=== PATIENT | male | born 1980 | race Caucasian/White ===

== ENCOUNTER 2021-11-17 13:12 | Emergency (ER) | payer MEDICAID, SELFPAY ==
[2021-11-17 13:20] VITALS: BP 117/56; PULSE 85; RESP 24; TEMP 37.5; O2SAT 100
--- NOTE | 2021-11-17 14:30 | DI.RAD_ITS ---
Exam(s) XR PORTABLE CHEST AP EXAM: XR PORTABLE CHEST AP CLINICAL HISTORY: cough. TECHNIQUE: 2D digital imaging was performed. COMPARISON: No exams were available for comparison FINDINGS: Single AP portable view. Heart size is upper normal. The mediastinum is not widened. Lungs are clear. No infiltrates nor obvious pleural effusions. IMPRESSION: No acute pulmonary findings on this single AP portable view of the chest. DATA REPOSITORY: RADIATION DOSE DELIVERED:
--- NOTE | 2021-11-17 14:36 | ED.GENADUL_ITS ---
Discharge Plan Disposition Patient Disposition: HOME Condition: Stable Discharge Details Clinical Impression: Cough, Upper respiratory infection Primary Care Provider: Marjan Interiano ED Provider: Niko Rousseau Home Meds and New Rx's Prescriptions: New prednisone 20 mg tablet 60 mg PO DAILY 4 Days Qty: 12 0RF amoxicillin-pot clavulanate 875-125 mg tablet 1 tab PO BID Qty: 14 0RF Continued gabapentin 600 mg Tablet 600 mg PO TID levothyroxine 50 mcg Tablet 50 mcg PO DAILY lamotrigine 100 mg Tablet 100 mg PO BID testosterone 200 mg Pellet See Rx Instructions .ROUTE .COMPLEX Rx Instructions: 200 mg subcutaneously q 2 weeks. Discharge Instructions Instructions: Upper Respiratory Infection (ED) Additional Instructions: if you're not improving this week follow up with your primary care provider if you feel more ill, have worsening shortness of breath or severe pain return to the emergency department Medical Decision Making 41 yo male who has hypothyroidism who comes in with 1 week of nasal congestion, cough and body aches. He states he lives with people that have had similar symptoms but resolved after a few days. HE has not checked his temperature but has felt warm and also had chills. HE denies dyspnea, chest pain, abdomen pain. He does have a history of substance abuse but states he has been clear for 9 months. HE arrives stable speaking in full sentences, caox4 with clear speech. No rashes, does have clear rhinorrhea and pain with percussion over the maxillary sinuses. HE has rhonchi in both lower lungs on exam, no murmurs. Suspect viral uri vs sinusitis vs covid, less likely pneumonia, will obtain cbc, cmp, treat with duoneb and prednisone and obtain covid test and cxr and reassess. Denies ivdu and has no murmurs or other stigmata of endocarditis wbc of 13 otherwise unremarkable, xray unremarkable. HE is stable, feels better after a neb, given a week of symptoms will treat for possible sinusitis vs bacterial uri with augmentin. He is stable for d/c, advised to f/u with pcp and return precautions given Differential Diagnosis Differential Diagnosis: uri, sinusitis, covid, pneumonia Imaging Data Radiologic Study: Attestation: I personally reviewed and interpreted this imaging study as follows: Imaging: X-Ray Radiologist's impression: no acute findings Lab Data Lab results reviewed: Yes I reviewed the patient's lab results. HPI General Mode of arrival: ambulatory . Date/Time Provider Initiated Documentation: 11/17/21 13:59 . Limitations to Documentation: no limitations . Information obtained by: patient . History of Present Illness 41 year old M presents to the emergency department with the chief complaint of cough, described as moderate, Patient started experiencing this week(s) (1) and it has been intermittent. No relieving factors improve symptom(s), No exacerbating factors reported . Patient notes fever/chills. Patient did receive the following treatments prior to arrival, none Related Data Home Medications Medication Instructions Recorded Confirmed amoxicillin 875 mg-potassium 1 tab PO BID #14 tabs 11/17/21 clavulanate 125 mg tablet gabapentin 600 mg tablet 600 mg PO TID 11/17/21 11/17/21 lamotrigine 100 mg tablet 100 mg PO BID 11/17/21 11/17/21 levothyroxine 50 mcg tablet 50 mcg PO DAILY 11/17/21 11/17/21 prednisone 20 mg tablet 60 mg PO DAILY 4 days #12 tabs 11/17/21 testosterone 200 mg implant pellet See Rx Instructions .Route .COMPLEX 11/17/21 11/17/21 Previous Rx's Medication Instructions Recorded amoxicillin 875 mg-potassium 1 tab PO BID #14 tabs 11/17/21 clavulanate 125 mg tablet prednisone 20 mg tablet 60 mg PO DAILY 4 days #12 tabs 11/17/21 Allergies Allergy/AdvReac Type Severity Reaction Status Date / Time No Known Allergies Allergy Unverified 11/17/21 14:26 General Stated Complaint: RespSymp LC: 3 Review of Systems All systems reviewed & are unremarkable except as noted in HPI and below Constitutional Constitutional: Denies weakness Eyes Eyes: Denies loss of vision ENT Ears, Nose, Mouth, and Throat: Denies change in voice Cardiovascular Cardiovascular: Denies chest pain and Denies dyspnea Respiratory Respiratory: Denies dyspnea Gastrointestinal Gastrointestinal: Denies abdominal pain, Denies nausea and Denies vomiting Genitourinary Genitourinary: Denies dysuria Musculoskeletal Musculoskeletal: Denies joint swelling Integumentary/Breasts Skin/Breast: Denies rash Neurologic Neurologic: Denies loss of vision and Denies weakness PFSH All Active Problems (Updated 11/17/21 @ 15:58 by Niko Rousseau MD) Cough (Acute) Upper respiratory infection (Acute) Social History Smoking/Tobacco Use Status: Current every day Tobacco Type: cigarettes Smoking risk assessment performed?: Yes Alcohol Intake: former Drug use: Daily Substance use type: marijuana Do you feel safe at home: Yes Do you feel safe in your relationship?: Yes Exam Const General: no acute distress Orientation: alert HENMT Head: normal to inspection Ears: external ears normal General nose exam: external nose normal Mouth: moist mucous membranes Eyes General: appearance normal, both eyes and all related structures Neck Neck: normal visual inspection Resp Effort & Inspection: normal respiratory effort and able to speak in complete sentences Cardio Rate: regular rate Skin General skin exam: no rashes or lesions noted Neuro General: patient alert and patient oriented x3 Extrem General: normal to inspection Psych Mental Status: mental status grossly normal Course Vital Signs Vital signs: Vital Signs Temperature 37.5 C 11/17/21 13:20 Pulse 85 11/17/21 13:20 Respiratory Rate 24 11/17/21 13:20 Blood Pressure 117/56 L 11/17/21 13:20 Pulse Oximetry 100 11/17/21 13:20 Temperature 37.5 C 11/17/21 13:20 Temperature Source Oral 11/17/21 13:20 Pulse 85 11/17/21 13:20 Respiratory Rate 24 11/17/21 13:20 Respiratory Effort Non-Labored 11/17/21 14:29 Respiratory Depth Normal 11/17/21 14:29 Blood Pressure 117/56 L 11/17/21 13:20 Pulse Oximetry 100 11/17/21 13:20 Oxygen Delivery Method Room Air 11/17/21 13:20 Oxygen Flow Rate 0 11/17/21 13:20 Pain Level 10 11/17/21 13:20 Comment 11/17/21 13:20
[2021-11-17 14:45] LABS: Source Nasal/Nares
[2021-11-17 14:50] LABS: Abs Immature Grans 0.03 10^3/uL (0.0-0.06); Absolute Basophil Count 0.03 10^3/uL (0.0-0.2); Absolute Eosinophil Count 0.04 10^3/uL (0.0-0.7); Absolute Monocyte Count 1.09 10^3/uL (0.1-0.8); Basophils % 0.2; Eosinophils % 0.3; HCT 42.6 % (40.0-50.0); HGB 14.6 g/dL (13.5-17.5); Immature Grans % 0.2; Lymphocytes % 12.8; MCH 29.6 pg (27.0-33.0); MCHC 34.3 % (32.0-36.0); MCV 86 fL (80-95); MPV 9.7 fL (8.0-11.0); Monocytes % 8.3; Neutrophils % 78.2; Platelet Count 243 10^3/uL (130-400); RBC 4.94 10^6/uL (4.36-5.78); RDW-SD 38.1 fL; WBC 13.17 10^3/uL (4.4-10.8)
[2021-11-17 14:51] VITALS: RESP 14
[2021-11-17] MEDS: Albuterol/Ipratropium 3 ML UPD VIAL UPD (14:51)
[2021-11-17] MEDS: predniSONE 20 MG TAB 60 MG PO (14:51)
[2021-11-17 14:55] LABS: Absolute Lymphocyte Count 1.69 10^3/uL (1.2-3.4)
[2021-11-17 15:08] LABS: ALT 39 U/L (16-63); AST 40 U/L (15-37); Albumin 3.9 g/dL (3.4-5.0); Alkaline Phosphatase 71 U/L (46-116); Anion Gap 7.8 mmol/L (3-11); BUN 14 mg/dL (7-18); Bilirubin, Total 0.8 mg/dL (0.2-1.0); CO2 29.2 mmol/L (21.0-32.0); CREATININE 0.9 mg/dL (0.70-1.30); Chloride 99 mmol/L (98-107); Estimated GFR 109.36 (mL/min/1.73m2); Glucose 108 mg/dL (74-106); Potassium 3.8 mmol/L (3.5-5.1); Sodium 136 mmol/L (136-145); Total Protein 7.5 g/dL (6.4-8.2)
[2021-11-17 15:10] VITALS: TEMP 38.1
[2021-11-17 15:13] VITALS: TEMP 38.1
[2021-11-17] MEDS: Acetaminophen 500 MG TAB 1000 MG PO (15:13)
--- NOTE | 2021-11-17 15:13 | DI.VRAD_ITS ---
PROCEDURE INFORMATION: Exam: XR Chest Exam date and time: 11/17/2021 2:46 PM Age: 41 years old Clinical indication: Cough TECHNIQUE: Imaging protocol: Radiologic exam of the chest. Views: 1 view. COMPARISON: No relevant prior studies available. FINDINGS: Lungs: Chronic interstitial prominence. No consolidation. Pleural spaces: Unremarkable. No pleural effusion. No pneumothorax. Heart/Mediastinum: Unremarkable. No cardiomegaly. Bones/joints: Unremarkable. IMPRESSION: No acute findings. Dictated and Authenticated by: Michael Pendleton MD. Ordering:MARYA Pope MD
[2021-11-17 15:21] LABS: COVID-19 PCR Negative (Negative)
[2021-11-17] MEDS: Amoxicillin 875/Clav. 125 TAB PO (15:59)
[2021-11-17] MEDS: Albuterol HFA 8 GM 60 PUFF INH IH (16:03)
[2021-11-17 16:08] VITALS: BP 119/58; PULSE 95; RESP 18; TEMP 37; O2SAT 95
== END 2021-11-17 16:11 | disposition home or self-care (01) ==
PROVIDERS: Emergency Provider Emergency Medicine; PCP Registered Nurse Infection Control
DX: J06.9 Acute upper respiratory infection, unspecified (principal); Z20.822 Contact with and (suspected) exposure to COVID-19; F17.210 Nicotine dependence, cigarettes, uncomplicated
CPT/HCPCS: 36415; 80053; 87635; 94640; 99284; 71045; 85025; J7512; J7620

== ENCOUNTER 2021-12-09 15:29 | Emergency (ER) | payer MEDICAID, SELFPAY ==
[2021-12-09 15:36] VITALS: BP 104/79; PULSE 99; RESP 18; TEMP 36.5; O2SAT 100
--- NOTE | 2021-12-09 15:45 | DI.RAD_ITS ---
Exam(s) XR SHOULDER RT COMPLETE 2+V EXAM: XR SHOULDER RT COMPLETE 2+V CLINICAL HISTORY: right shoulder. TECHNIQUE: 2D digital imaging was performed. Five views. COMPARISON: No exams were available for comparison FINDINGS: BONES: No acute fracture is present. No bony destructive lesion is seen. JOINTS: No dislocation present. SOFT TISSUE: Normal. IMPRESSION: Unremarkable radiographs of the right shoulder. DATA REPOSITORY: RADIATION DOSE DELIVERED:
--- NOTE | 2021-12-09 17:19 | ED.GENADUL_ITS ---
Discharge Plan Disposition Patient Disposition: HOME Condition: Stable Discharge Details Clinical Impression: Muscle strain of right shoulder Primary Care Provider: Marjan Interiano ED Provider: Mabel Veliz Home Meds and New Rx's Prescriptions: New cyclobenzaprine 10 mg tablet 10 mg PO TID PRN (Reason: muscle spasm) Qty: 10 0RF No Action gabapentin 600 mg Tablet 600 mg PO TID levothyroxine 50 mcg Tablet 50 mcg PO DAILY lamotrigine 100 mg Tablet 100 mg PO BID testosterone 200 mg Pellet See Rx Instructions .ROUTE .COMPLEX Rx Instructions: 200 mg subcutaneously q 2 weeks. Discharge Instructions Instructions: Muscle Strain (ED) Additional Instructions: Alternate ice and heat. X-rays today show no evidence of dislocation or any bony abnormality. I do suspect a muscle strain. Gentle massage. Please take Tylenol or Ibuprofen with food every 4-6 hours as needed for pain and swelling. Take the muscle relaxers up to 3 times daily as needed no driving while taking these medications as they may make you sleepy. Wear the sling for comfort Stand Alone Forms: Work Release Referrals: Krish Christianson MD [ [facility] STAFF PHYSICIAN] - 2 weeks Discharge Data Discharge Date/Time-TO BE ENTERED AT DEPARTURE: 12/09/21 17:47 Medical Decision Making 41-year-old male presents to the ER with a chief complaint of right shoulder pain status post a injury approximately 2 days ago while lifting 300 pound counter. He reports that he had severe pain since then and has been massaging it with little to no relief. He did suspect a dislocation however x-rays show that it is not dislocated. No acute bony abnormality he is able to fully move his shoulder. will give Flexeril and ibuprofen and discharge. Patient has a sling on. This text was generated using [employer] system, please disregard any oddities of phrase or misspellings. HPI General Mode of arrival: ambulatory . Date/Time Provider Initiated Documentation: 12/09/21 16:26 . Limitations to Documentation: no limitations . Information obtained by: patient, RN notes reviewed and old records reviewed . HPI Narrative: 41-year-old male presents to the ER with a chief complaint of right shoulder pain status post a injury approximately 2 days ago while lifting 300 pound counter. He reports that he had severe pain since then and has been massaging it with little to no relief. He did suspect a dislocation however x-rays show that it is not dislocated. No acute bony abnormality he is able to fully move his shoulder. No obvious deformity. Distal CMS is intact. He does take buprenorphine and had been taking some Flexeril with little to no relief. Related Data Home Medications Medication Instructions Recorded Confirmed gabapentin 600 mg tablet 600 mg PO TID 11/17/21 12/09/21 lamotrigine 100 mg tablet 100 mg PO BID 11/17/21 12/09/21 levothyroxine 50 mcg tablet 50 mcg PO DAILY 11/17/21 12/09/21 testosterone 200 mg implant pellet See Rx Instructions .Route .COMPLEX 11/17/21 12/09/21 cyclobenzaprine 10 mg tablet 10 mg PO TID PRN muscle spasm #10 12/09/21 tabs Previous Rx's Medication Instructions Recorded cyclobenzaprine 10 mg tablet 10 mg PO TID PRN muscle spasm #10 12/09/21 tabs Allergies Allergy/AdvReac Type Severity Reaction Status Date / Time No Known Allergies Allergy Unverified 12/09/21 15:37 General Stated Complaint: Orthopedic LC: 3 Review of Systems All systems reviewed & are unremarkable except as noted in HPI and below PFSH All Active Problems (Updated 12/09/21 @ 17:24 by Mabel Veliz NP) Cough (Acute) Upper respiratory infection (Acute) Muscle strain of right shoulder (Acute) Social History Smoking/Tobacco Use Status: Current every day Tobacco Type: cigarettes Smoking risk assessment performed?: Yes Alcohol Intake: former Drug use: Daily Substance use type: marijuana Do you feel safe at home: Yes Do you feel safe in your relationship?: Yes Exam Extrem General: normal to inspection Right upper extremity: normal to inspection, full ROM, normal capillary refill and shoulder/upper arm Details: tenderness and swelling Course Vital Signs Vital signs: Vital Signs Temperature 36.5 C 12/09/21 15:36 Pulse 99 H 12/09/21 15:36 Respiratory Rate 18 12/09/21 15:36 Blood Pressure 104/79 12/09/21 15:36 Pulse Oximetry 100 12/09/21 15:36 Temperature 36.5 C 12/09/21 15:36 Temperature Source Temporal Artery Scan 12/09/21 15:36 Pulse 99 H 12/09/21 15:36 Respiratory Rate 18 12/09/21 15:36 Respiratory Effort Non-Labored 12/09/21 15:39 Blood Pressure 104/79 12/09/21 15:36 Pulse Oximetry 100 12/09/21 15:36 Oxygen Delivery Method Room Air 12/09/21 15:36 Oxygen Flow Rate 0 12/09/21 15:36 Pain Level 10 12/09/21 15:36
[2021-12-09] MEDS: Cyclobenzaprine 10 MG TAB, 3 TABS/BTL PO (17:38)
[2021-12-09] MEDS: Ibuprofen 600 MG TAB PO (17:39)
[2021-12-09] MEDS: Cyclobenzaprine 10 MG TAB PO (17:39)
== END 2021-12-09 17:47 | disposition home or self-care (01) ==
PROVIDERS: Emergency Provider Registered Nurse Emergency; PCP Registered Nurse Infection Control
DX: S46.811A Strain of other muscles, fascia and tendons at shoulder and upper arm level, right arm, initial encounter (principal); X50.0XXA Overexertion from strenuous movement or load, initial encounter; Y99.0 Civilian activity done for income or pay
CPT/HCPCS: 99283; 73030